=== PATIENT | female | born 1960 | race Caucasian/White ===

== ENCOUNTER 2016-11-25 10:59 | Emergency (ER) | payer SELFPAY ==
[2016-11-25] MEDS ORDERED: NORMAL SALINE 1000 ML 1,000 ML IV ONE (11:25)
[2016-11-25] MEDS ORDERED: ONDANSETRON HCL INJ/PF 4 MG/2 ML SDV IV ONE (11:28)
--- NOTE | 2016-11-25 11:28 | ER Document Report ---
ED Medical Screen (RME) - General Chief Complaint: Dizziness Stated Complaint: WEAKNESS Time Seen by Provider: 11/25/16 11:24 Notes: Patient says that she has not been feeling well for the past 3-4 days. Says she has been feeling tired and drained. Has felt hot and cold, but not sure she has had a fever. This morning, she felt as if she might pass out. Feeling very dizzy ever since she got up this morning. Has been nauseated and did vomit last night and has vomited today. No diarrhea. Patient has a headache, but she has migraine headaches and this is not like a migraine headache. She has noted some urinary frequency, although she has no other signs of a UTI. Never been told she is diabetic. Not short of breath or any chest congestion. PMH: BTL. Back surgery 2. History of cholesterol elevation on no medication. , migraine headaches on Topamax. TRAVEL OUTSIDE OF THE [place] IN LAST 30 DAYS: No - Related Data Allergies/Adverse Reactions: morphine [Morphine] Allergy (Mild, Verified 11/25/16 11:06) acetaminophen [Acetaminophen] Adverse Reaction (Verified 11/25/16 11:06) Past Medical History - Social History Chew tobacco use (# tins/day): No Frequency of alcohol use: None Drug Abuse: None - Past Medical History Cardiac Medical History: Reports: Hx Coronary Artery Disease - High cholesterol , Hx Hypercholesterolemia, Hx Hypertension Denies: Hx Heart Attack Pulmonary Medical History: Reports: Hx Bronchitis - as child, Hx Pneumonia - as child Denies: Hx Asthma, Hx COPD Neurological Medical History: Reports: Hx Migraine. Denies: Hx Cerebrovascular Accident, Hx Seizures Renal/ Medical History: Denies: Hx Peritoneal Dialysis Musculoskeltal Medical History: Reports Hx Arthritis, Reports Hx Musculoskeletal Trauma Skin Medical History: Reports Hx Eczema Traumatic Medical History: Reports: Hx Fractures - bilateral ankles, right tib and fib, left arm Past Surgical History: Reports: Hx Orthopedic Surgery - back surgery, Hx Tubal Ligation. Denies: Hx Hysterectomy, Hx Pacemaker - Immunizations Immunizations up to date: No Hx Diphtheria, Pertussis, Tetanus Vaccination: No Physical Exam - Vital signs Vitals: Temp Pulse Resp BP Pulse Ox 97.6 F 65 18 123/73 97 11/25/16 11:03 11/25/16 11:03 11/25/16 11:03 11/25/16 11:03 11/25/16 11:03 Course - Vital Signs Vital signs: Temp Pulse Resp BP Pulse Ox 97.6 F 65 18 123/73 97 11/25/16 11:03 11/25/16 11:03 11/25/16 11:03 11/25/16 11:03 11/25/16 11:03
[2016-11-25 12:00] LABS: ABSOLUTE EOSINOPHILS # (AUTO) 0.1 10^3/uL (0.0-0.6); ABSOLUTE LYMPHOCYTES (AUTO) 1.7 10^3/uL (0.5-4.7); ABSOLUTE MONOCYTES (AUTO) 0.4 10^3/uL (0.1-1.4); ABSOLUTE NEUT (AUTO) 3.3 10^3/uL (1.7-8.2); BASOPHILS % (AUTO) 0.6 % (0-2); EOSINOPHILS % (AUTO) 2.2 % (0-6); HEMATOCRIT 39.8 % (36.0-47.0); HEMOGLOBIN 13.7 g/dL (12.0-15.5); HGB HCT DIFFERENCE 1.3; LYMPHOCYTES % (AUTO) 30.2 % (13-45); MEAN CORPUSCULAR HEMOGLOBIN 31.9 pg (27.0-33.4); MEAN CORPUSCULAR HGB CONC 34.4 g/dL (32.0-36.0); MEAN CORPUSCULAR VOLUME 93 fl (80-97); RED CELL DISTRIBUTION WIDTH 12.9 % (11.5-14.0); WHITE BLOOD COUNT 5.6 10^3/uL (4.0-10.5)
[2016-11-25 12:03] LABS: APPEARANCE,URINE SLIGHTLY-CLOUDY; BILIRUBIN,URINE NEGATIVE (NEGATIVE); GLUCOSE, URINE NEGATIVE (NEGATIVE); KETONES,URINE NEGATIVE (NEGATIVE); LEUKOCYTE ESTERASE,URINE TRACE (NEGATIVE); NITRITE,URINE NEGATIVE (NEGATIVE); PROTEIN,URINE NEGATIVE (NEGATIVE); URINE SPECIFIC GRAVITY 1.024; UROBILINOGEN,URINE NEGATIVE mg/dL (<2.0)
[2016-11-25 12:23] LABS: ALANINE AMINOTRANSFERASE 32 U/L (9-52); ALBUMIN 4.3 g/dL (3.5-5.0); ALKALINE PHOSPHATASE 65 U/L (38-126); ANION GAP 11 (5-19); ASPARTATE AMINO TRANSFERASE 33 U/L (14-36); BILIRUBIN,DIRECT 0.3 mg/dL (0.0-0.4); BILIRUBIN,TOTAL 0.4 mg/dL (0.2-1.3); BLOOD UREA NITROGEN 18 mg/dL (7-20); CARBON DIOXIDE 24 mmol/L (22-30); CHLORIDE 109 mmol/L (98-107); CREATININE RESULT 0.73 mg/dL (0.52-1.25); GLUCOSE 109 mg/dL (75-110); POTASSIUM 4.3 mmol/L (3.6-5.0); SODIUM 143.9 mmol/L (137-145); TOTAL PROTEIN 7.7 g/dL (6.3-8.2)
[2016-11-25 12:35] LABS: CREATINE KINASE MB 0.91 ng/mL (<4.55)
[2016-11-25 12:39] LABS: TROPONIN I < 0.012 ng/mL
[2016-11-25] MEDS ORDERED: MECLIZINE HCL 25 MG TABLET PO ONE (13:09)
--- NOTE | 2016-11-25 13:57 | EKG REPORT ---
SEVERITY:- ABNORMAL ECG - SINUS RHYTHM NONSPECIFIC T ABNORMALITIES, ANT-LAT LEADS : Confirmed by: Kodi Noe MD 25-Nov-2016 13:56:21
[2016-11-25] MEDS ORDERED: DIPHENHYDRAMINE HCL 50 MG/ML VIAL IV ONE (14:33)
[2016-11-25] MEDS ORDERED: METOCLOPRAMIDE HCL INJ/PF 10 MG/2 ML SDV IV ONE (14:33)
--- NOTE | 2016-11-25 16:56 | ER Document Report ---
ED General - General Chief Complaint: Dizziness Stated Complaint: WEAKNESS Time Seen by Provider: 11/25/16 11:24 Mode of Arrival: Ambulatory Information source: Patient TRAVEL OUTSIDE OF THE [place] IN LAST 30 DAYS: No - HPI Patient complains to provider of: Dizziness, vomiting Onset: Other - 2-3 days Onset/Duration: Gradual, Waxing and waning Quality of pain: Achy Severity: Mild Pain Level: 1 Associated symptoms: Body/muscle aches, Nausea, Vomiting Exacerbated by: Movement Relieved by: Denies Notes: Patient is a 56-year-old female who presents to the emergency room for complaints of generalized malaise with dizziness and muscle stiffness has been going on for the past couple of days, she reports decreased sleep, hot and cold flashes, and dizziness that is worse when she goes from sitting to standing position, she denies a headache, although she has a history of migraine headaches, she did have an episode of vomiting today as well, she denies any sinus congestion, no cough, no abdominal pain, no diarrhea she does report some increased urinary frequency - Related Data Allergies/Adverse Reactions: morphine [Morphine] Allergy (Mild, Verified 11/25/16 11:06) acetaminophen [Acetaminophen] Adverse Reaction (Verified 11/25/16 11:06) Past Medical History - General Information source: Patient - Social History Smoking Status: Never Smoker Chew tobacco use (# tins/day): No Frequency of alcohol use: None Drug Abuse: None Family History: Arthritis, CAD, CVA, DM, Hyperlipidemia, Hypertension, Malignancy, Thyroid Disfunction - Past Medical History Cardiac Medical History: Reports: Hx Coronary Artery Disease - High cholesterol , Hx Hypercholesterolemia, Hx Hypertension Denies: Hx Heart Attack Pulmonary Medical History: Reports: Hx Bronchitis - as child, Hx Pneumonia - as child Denies: Hx Asthma, Hx COPD Neurological Medical History: Reports: Hx Migraine. Denies: Hx Cerebrovascular Accident, Hx Seizures Renal/ Medical History: Denies: Hx Peritoneal Dialysis Musculoskeltal Medical History: Reports Hx Arthritis, Reports Hx Musculoskeletal Trauma Skin Medical History: Reports Hx Eczema Traumatic Medical History: Reports: Hx Fractures - bilateral ankles, right tib and fib, left arm Past Surgical History: Reports: Hx Orthopedic Surgery - back surgery, Hx Tubal Ligation. Denies: Hx Hysterectomy, Hx Pacemaker - Immunizations Immunizations up to date: No Hx Diphtheria, Pertussis, Tetanus Vaccination: No Review of Systems - Review of Systems Constitutional: See HPI EENT: No symptoms reported Cardiovascular: See HPI Respiratory: No symptoms reported Gastrointestinal: See HPI Genitourinary: No symptoms reported Female Genitourinary: No symptoms reported Musculoskeletal: No symptoms reported Skin: No symptoms reported Hematologic/Lymphatic: No symptoms reported Neurological/Psychological: See HPI -: Yes All other systems reviewed and negative Physical Exam - Vital signs Vitals: Temp Pulse Resp BP Pulse Ox 97.6 F 65 18 123/73 97 11/25/16 11:03 11/25/16 11:03 11/25/16 11:03 11/25/16 11:03 11/25/16 11:03 Interpretation: Normal - General General appearance: Appears well, Alert - HEENT Head: Normocephalic, Atraumatic Eyes: Normal Pupils: PERRL - Respiratory Respiratory status: No respiratory distress Chest status: Nontender Breath sounds: Normal Chest palpation: Normal - Cardiovascular Rhythm: Regular Heart sounds: Normal auscultation Murmur: No - Abdominal Inspection: Normal Distension: No distension Bowel sounds: Normal Tenderness: Nontender Organomegaly: No organomegaly - Back Back: Normal, Nontender - Extremities General upper extremity: Normal inspection, Nontender, Normal color, Normal ROM , Normal temperature General lower extremity: Normal inspection, Nontender, Normal color, Normal ROM , Normal temperature, Normal weight bearing. No: Coral's sign - Neurological Neuro grossly intact: Yes Cognition: Normal Orientation: AAOx4 [place] Coma Scale Eye Opening: Spontaneous [place] Coma Scale Verbal: Oriented [place] Coma Scale Motor: Obeys Commands [place] Coma Scale Total: 15 Speech: Normal Motor strength normal: LUE, RUE, LLE, RLE Sensory: Normal - Psychological Associated symptoms: Normal affect, Normal mood - Skin Skin Temperature: Warm Skin Moisture: Dry Skin Color: Normal Course - Re-evaluation Re-evalutation: 11/25/16 20:30 Patient was able to ambulate without difficulty, she did report mild dizziness or sensation of the room spinning when she first got up, lab and imaging findings were discussed with her at bedside which are unremarkable, she was discharged with prescriptions for Zofran and meclizine, advised to rest, drink plenty fluids and follow-up with her primary care provider in 1-2 days, or return if symptoms worsen, patient acknowledges understanding and agreement with this plan - Vital Signs Vital signs: Temp Pulse Resp BP Pulse Ox 97.8 F 61 18 100/60 96 11/25/16 17:13 11/25/16 17:13 11/25/16 17:13 11/25/16 17:13 11/25/16 17:13 - Laboratory Result Diagrams: 11/25/16 11:36 11/25/16 11:36 Laboratory results interpreted by me: 11/25/16 11/25/16 11:36 11:36 Chloride 109 H Ur Leukocyte Esterase TRACE H Urine Ascorbic Acid 40 H - Diagnostic Test Radiology reviewed: Image reviewed, Reports reviewed - EKG Interpretation by Me EKG shows normal: Sinus rhythm Rate: Normal Rhythm: NSR Discharge - Discharge Clinical Impression: Dizziness Condition: Stable Disposition: HOME, SELF-CARE Instructions: Antinausea Medication ([facility]), Dizziness ([facility]), Meclizine ([facility]), Vertigo ([facility]) Additional Instructions: Follow up with your primary care provider in one to 2 days. Return to the emergency room immediately if symptoms worsen or any additional concerns. Prescriptions: Meclizine HCl [Antivert 25 mg Tablet] 25 mg PO TID #20 tablet Ondansetron [Zofran Odt 4 mg Tablet] 1 - 2 tab PO Q4H #10 tab.rapdis Forms: Return to Work Referrals: JESSICA VOSS MD [Primary Care Provider] - Follow up as needed
[2016-11-25 17:20] VITALS: BP 100/60
--- NOTE | 2016-11-26 14:15 | RADIOLOGY REPORT (SQ) ---
EXAM DESCRIPTION: CT brain without contrast COMPLETED DATE/TIME: 11/25/2016, 1503 hours REASON FOR STUDY: Injury pain COMPARISON: CT brain 09/01/2014, 10/07/2008, 04/12/2008 TECHNIQUE: Uncontrasted CT brain was performed, reviewed at bone subdural and brain parenchymal [facility]. LIMITATIONS: None FINDINGS: No CT evidence of acute large territory ischemic change, acute intracranial hemorrhage, ma ss effect, or midline shift. Brain parenchyma, ventricles, extra-axial CSF spaces are unremarkable. Bone windows demonstrate no calvarial fracture. Paranasal sinuses mastoid air cells unremarkable asi de from a left mucus or serous retention cyst floor maxillary sinus. Orbits unremarkable. IMPRESSION: No acute findings.
== END 2016-11-25 17:20 | disposition home or self-care (01) ==
LOC: ER 10:59
DX: R42 Dizziness and giddiness (principal); R11.2 Nausea with vomiting, unspecified; R53.81 Other malaise; R35.0 Frequency of micturition; I25.10 Atherosclerotic heart disease of native coronary artery without angina pectoris; I10 Essential (primary) hypertension; Z88.5 Allergy status to narcotic agent
CPT/HCPCS: 93005; 99284; 36415; 82553; 82962; 85025; 80053; 81001; 84484; 70450; 93010; J1200; J2765; J2405; J7030